=== PATIENT | male | born 1990 | race Caucasian/White ===

== ENCOUNTER 2017-01-22 19:58 | Emergency (ER) | payer BC ==
[~2017-01-22] VITALS: Ht 182.9 cm; Wt 81.5 kg
[2017-01-22 20:02] VITALS: Ht 182.9 cm; Wt 81.5 kg
[2017-01-22] MEDS ORDERED: AZIT250T94 PO (20:30)
--- NOTE | 2017-01-22 23:35 | ERD ---
ER Documentation Chief Complaint Date/Time DATE: 01/22/17 TIME: 23:33 Chief Complaint SORE THROAT X 3 DAYS WITH HEADACHE HPI This patient is a 26-year-old male presenting to the emergency department with complaints of sore throat. Symptoms began 3 days ago. He began taking a Z-Chauncey which he had left over from previous ailment. He has taken 3 of the 250 g milligram tablets so far. Symptoms are improving. Symptoms are currently mild in severity. Associated symptoms include right-sided headache. The patient denies significant fever, chills, nausea, vomiting, diarrhea, or other symptoms. ROS All systems reviewed and are negative except as per history of present illness. Medications Home Meds Active Scripts Azithromycin* (Zithromax*) 250 Mg Tablet, 250 MG PO .ZPACK DIRECTED, #6 TAB TAKE 500 MG (2 TABS) THE FIRST DAY THEN 250 MG (1 TAB) DAYS 2-5 Prov:KASSI CAMEJO PA-C 01/22/17 Allergies Allergies: Coded Allergies: ibuprofen (Verified Allergy, LIP/MOUTH SWELLING, 04/21/13) PMhx/Soc History of Surgery: Yes (L FEMUR RODDED FX 2008 ) Anesthesia Reaction: No Hx Neurological Disorder: No Hx Respiratory Disorders: No Hx Cardiac Disorders: No Hx Psychiatric Problems: No Hx Miscellaneous Medical Probl: No Hx Alcohol Use: No Hx Substance Use: No Hx Tobacco Use: No Smoking Status: Never smoker Physical Exam Vitals Vital Signs Date Time Temp Pulse Resp B/P Pulse Ox O2 Delivery O2 Flow Rate FiO2 01/22/17 20:02 99.4 89 20 128/81 97 Physical Exam Const: Nontoxic, well-appearing male in no acute distress. Head: Atraumatic Eyes: Normal Conjunctiva ENT: Normal External Ears, Nose and Mouth. There is bilateral tonsillar erythema but no hypertrophy or exudate noted. The airway is clear. Neck: Full range of motion..~ No meningismus. Resp: Clear to auscultation bilaterally Cardio: Regular rate and rhythm, no murmurs Abd: Soft, non tender, non distended. Normal bowel sounds Skin: No petechiae or rashes Back: No midline or flank tenderness Ext: No cyanosis, or edema Neur: Awake and alert Psych: Normal Mood and Affect Procedures/MDM 26-year-old male presenting to the emergency department with complaints of sore throat. History and clinical examination is consistent with pharyngitis. The patient is stable for outpatient management with a prescription for sent. Questions and concerns were addressed. Close follow-up with the primary care physician advised. Strict ER return precautions were discussed. I have low suspicion for peritonsillar abscess, retropharyngeal abscess, sepsis, or other emergent conditions. Departure Diagnosis: Primary Impression: Pharyngitis Condition: Fair Patient Instructions: Pharyngitis, Strep (Presumed) Additional Instructions: Follow up with your PCP within the next 1-3 days for a repeat evaluation. If you require a referral to a specialist, your Primary Care Provider may be able to provide this for you. In most patient cases, a referral is not required. If you have further questions regarding this matter, please ask your Primary Care Provider. Return the the emergency department immediately if symptoms worsen or change. If you have any questions regarding medications, ask your pharmacist or us before you leave. If any adverse reactions, occur while taking your medications, discontinue the treatment and return to the emergency department immediately. If any new or worsening symptoms, uncontrolled fevers, or other unexplained symptoms occur, return to the emergency department immediately. Take your medications as directed, and complete the entire course of treatment. KASSI CAMEJO PA-C Jan 22, 2017 23:35
== END 2017-01-22 20:51 | disposition home or self-care (01) ==
LOC: FTE 19:58
DX: J02.9 Acute pharyngitis, unspecified (principal)
CPT/HCPCS: 99283